=== PATIENT | female | born 1975 ===

== ENCOUNTER 2021-09-29 01:02 | Emergency (ER) | payer MEDICARE ==
[2021-09-29] MEDS ORDERED: ONDANSETRON 4 MG ODT TAB PO ONE (04:44)
--- NOTE | 2021-09-29 04:45 | Event Note ---
Date: 09/29/21 Medical screening examination note: 46-year-old female who indicates that she is not , presenting to the ER today with a complaint of nausea, vomiting and diarrhea. Is now resolved. She denies urinary symptoms. She states she is not homicidal or suicidal. Oral challenge, p.o. Edwin, screening laboratory studies, detailed history and physical to be performed by oncoming ER provider. Vital Signs 09/29/21 01:05 Temperature 98.1 F Pulse Rate 93 H Respiratory 16 Rate Blood Pressure 120/83 [Right] O2 Sat by Pulse 97 Oximetry
[2021-09-29 05:10] LABS: Hematocrit 37.6 % (30.3-42.9); Hemoglobin 12.9 gm/dl (10.1-14.3); Mean Corpuscular HGB Conc 34 % (30-34); Mean Corpuscular Volume 82 fl (79-97); Platelet Count 345 K/mm3 (140-440); Red Blood Count 4.56 M/mm3 (3.65-5.03); Red Cell Distribution Width 15.3 % (13.2-15.2)
[2021-09-29 05:33] LABS: Blood Urea Nitrogen 14 mg/dL (7-17); Calcium 8.7 mg/dL (8.4-10.2); Hemolysis Index 7
[2021-09-29 06:08] LABS: BUN/Creatinine Ratio 23
[2021-09-29] MEDS ORDERED: ONDANSETRON 4 MG/2 ML INJ IV ONE (06:31)
[2021-09-29] MEDS ORDERED: SODIUM CHLORIDE 0.9% 1000 ML 1,000 ML IV ONE (06:31)
--- NOTE | 2021-09-29 06:36 | Emergency Department Report ---
ED Abdominal Pain HPI - General Chief Complaint: Nausea/Vomiting/Diarrhea Stated Complaint: NAUSEA, VOMITING Time Seen by Provider: 09/29/21 06:18 Source: patient, EMS Mode of arrival: Ambulatory Limitations: No Limitations - History of Present Illness Initial Comments: Patient is 46 years old female with history of bipolar disorder. Patient presented to the ER complaining of lower abdominal pain for the last few days associated with nausea and vomiting. Patient denies any fever or chills. No diarrhea. No constipation. Patient also denied any chest pain or shortness of breath. No suicidal or homicidal ideation. No auditory or visual halluci nation. MD Complaint: abdominal pain -: days(s) (3) Location: diffuse, suprapubic Radiation: none Migration to: no migration Severity: moderate Quality: sharp Associated Symptoms: nausea, vomiting. denies: diarrhea, constipation, hematemesis, melena - Related Data Allergies Allergy/AdvReac Type Severity Reaction Status Date / Time haloperidol [From Haldol] Allergy Unknown Verified 09/29/21 01:05 ED Review of Systems ROS: Stated complaint: NAUSEA, VOMITING Other details as noted in HPI Comment: All other systems reviewed and negative Constitutional: denies: chills, fever Respiratory: denies: cough, shortness of breath, SOB with exertion, SOB at rest Cardiovascular: denies: chest pain, palpitations Gastrointestinal: abdominal pain, nausea, vomiting. denies: diarrhea, constipa tion, hematemesis, melena, hematochezia Musculoskeletal: denies: back pain Neurological: denies: headache, weakness, numbness, paresthesias, confusion Psychiatric: denies: depression, auditory hallucinations, visual hallucinations, homicidal thoughts, suicidal thoughts ED Past Medical Hx - Past Medical History Previous Medical History?: Yes Hx Psychiatric Treatment: Yes (anxiety Bipolar) - Surgical History Past Surgical History?: No ED Physical Exam - General Limitations: No Limitations General appearance: alert, in no apparent distress - Head Head exam: Present: atraumatic, normocephalic, normal inspection - Eye Eye exam: Present: normal appearance - ENT ENT exam: Present: mucous membranes dry - Neck Neck exam: Present: normal inspection, full ROM. Absent: tenderness, meningismus - Respiratory Respiratory exam: Present: normal lung sounds bilaterally - Cardiovascular Cardiovascular Exam: Present: regular rate, normal rhythm, normal heart sounds - GI/Abdominal GI/Abdominal exam: Present: soft, normal bowel sounds. Absent: distended, tenderness, guarding, rebound, rigid, organomegaly, mass, bruit, pulsatile mass, hernia - Extremities Exam Extremities exam: Present: normal inspection, full ROM, normal capillary refill. Absent: tenderness - Back Exam Back exam: Present: normal inspection, full ROM. Absent: CVA tenderness (R), CVA tenderness (L) - Neurological Exam Neurological exam: Present: alert, oriented X3, CN II-XII intact, normal gait, reflexes normal - Psychiatric Psychiatric exam: Present: normal mood - Skin Skin exam: Present: warm, intact, normal color ED Course Vital Signs 09/29/21 09/29/21 09/29/21 01:05 07:39 07:41 Temperature 98.1 F Pulse Rate 93 H 73 Respiratory 16 16 Rate Blood Pressure 120/83 103/64 [Right] O2 Sat by Pulse 97 97 97 Oximetry ED Medical Decision Making - Lab Data Result diagrams: 09/29/21 04:55 09/29/21 04:55 - Radiology Data Radiology results: report reviewed - Medical Decision Making Patient is 46 years old female with history of bipolar disorder. Patient presented to the ER complaining of lower abdominal pain for the last few days associated with nausea and vomiting. Patient denies any fever or chills. No diarrhea. No constipation. Patient also denied any chest pain or shortness of breath. No suicidal or homicidal ideation. No auditory or visual hallucination. Patient remained stable in the ER with a stable vital sign. Labs reviewed and is unremarkable except for leukocytosis. Patient received normal saline and Zofran. Patient stated that she is feeling much better. CT abdomen and pelvis with IV contrast is unremarkable. Patient advised to follow-up with her primary care physician in the next 2 to 3 days and to return to the ER if she develop any new symptoms. Critical care attestation.: If time is entered above; I have spent that time in minutes in the direct care of this critically ill patient, excluding procedure time. ED Disposition Clinical Impression: Acute abdominal pain, Acute nausea with nonbilious vomiting Disposition: HOME / SELF CARE / HOMELESS Is pt being admited?: No Condition: Stable Instructions: Nausea and Vomiting, Adult, Abdominal Pain, Adult Referrals: PRIMARY CARE, [Primary Care Provider] - 3-5 Days
--- NOTE | 2021-09-29 07:43 | Cat Scan Report ---
CT ABDOMEN AND PELVIS WITH CONTRAST INDICATION / CLINICAL INFORMATION: Patient complains of abdominal pain 100 ml omni 300 . TECHNIQUE: Axial CT images were obtained through the abdomen and pelvis after 100 cc Omnipaque [address] scans at this location are performed using CT dose reduction for ALARA by means of automated exposure control. COMPARISON: None available. FINDINGS: LOWER CHEST: No significant abnormality of the imaged chest. LIVER: No acute findings. Minimal hepatic steatosis not excluded. GALLBLADDER: Cholecystectomy. BILE DUCTS: No significant abnormality. SPLEEN: No significant abnormality. PANCREAS: No significant abnormality. ADRENALS: No significant abnormality. RIGHT KIDNEY / URETER: Right renal cyst measuring 2 cm. LEFT KIDNEY / URETER: Prominence of the left renal pelvis and calyceal system could reflect partial U PJ obstruction. No stones. Lower pole cyst measuring approximately 1.5 cm. STOMACH / DUODENUM / SMALL BOWEL: No significant abnormality. COLON: Diverticulosis without acute inflammation. APPENDIX: No significant abnormality. PERITONEUM: No free air or free fluid are present within the abdomen or pelvis. LYMPH NODES: No significant adenopathy. AORTA / ARTERIES: No significant abnormality. IVC / VEINS: No significant abnormality. URINARY BLADDER: No significant abnormality. REPRODUCTIVE ORGANS: Small left ovarian cyst. Uterus and ovaries otherwise unremarkable. ADDITIONAL ABDOMINAL/PELVIC FINDINGS: None. SKELETAL SYSTEM: No significant abnormality. IMPRESSION: 1. No imaging findings to suggest etiology of abdominal pain. Nonacute findings as detailed. Signer Name: Colton Moreno II, MD Signed: 09/29/2021 7:38 AM Workstation Name: [id number]
[2021-09-29 08:50] LABS: Bilirubin,Urine NEG (Negative); Blood,Urine NEG (Negative); Color,Urine Yellow (Yellow); Protein,Urine <15 mg/dL mg/dL (Negative); Urobilinogen,Urine < 2.0 mg/dL (<2.0)
[2021-09-29 08:58] LABS: RBC,Urine < 1.0 /HPF (0.0-6.0); WBC,Urine < 1.0 /HPF (0.0-6.0)
[2021-09-29 10:09] VITALS: BP 103/57
== END 2021-09-29 10:08 | disposition home or self-care (01) ==
LOC: ED 01:02
DX: R10.9 Unspecified abdominal pain (principal); R11.2 Nausea with vomiting, unspecified; Z88.5 Allergy status to narcotic agent
CPT/HCPCS: 36415; 74177; 80048; 81001; 83735; 84702; 85027; 96361; 96374; 99284; J2405; J7030; Q9967; 80320; G0480